=== PATIENT | female | born 1985 | race Caucasian/White ===

== ENCOUNTER 2019-09-13 22:11 | Emergency (ER) | payer SELFPAY ==
[2019-09-13] MEDS ORDERED: PROMETHAZINE HCL INJ 25 MG/1 ML VIAL IM ONE (23:19)
[2019-09-13] MEDS ORDERED: FAMOTIDINE INJ/PF 20 MG/2 ML SDV IV ONE (23:19)
[2019-09-13] MEDS ORDERED: NORMAL SALINE 1000 ML 1,000 ML IV ONE (23:19)
--- NOTE | 2019-09-13 23:21 | ER Document Report ---
ED Substance Abuse / Acc. OD - General TRAVEL OUTSIDE OF THE [place] IN LAST 30 DAYS: No - Related Data Home Medications: Protonix. Benadryl. Zofran <SANJAY OLIVEIRA - Last Filed: 09/14/19 05:34> <ELOALINA SUTTON - Last Filed: 09/14/19 10:00> - General Chief Complaint: ETOH Abuse Stated Complaint: ETOH ABUSE Time Seen by Provider: 09/13/19 23:13 Notes: Patient is a 34-year-old female that comes to the emergency department for chief complaint of wanting to detox from alcohol dependence. She states that she drinks alcohol daily, if she does not drink she gets tremors and feels awful. She states that she went to [facility] yesterday because she had episodes where she threw up some blood, she states she was discharged on Zofran and Protonix. She states that she can sip fluids but if she eats she has become intermittently nauseated and vomited. She has not vomited today. She denies fever/chills, chest pain, recreational drugs. She smokes. She has an IUD, has had an appendectomy, and has had a salpingectomy on one side. She denies any medical history otherwise. She denies any daily medications other than the ones from . She denies SI or HI. She has never gone through detox before. Patient states she does have a GI appointment for an endoscopy and colonoscopy already scheduled in about 3 weeks. (SANJAY OLIVEIRA) - Related Data Allergies/Adverse Reactions: metronidazole [From Flagyl] Allergy (Verified 09/13/19 22:19) Past Medical History - General Information source: Patient - Social History Smoking Status: Current Every Day Smoker Chew tobacco use (# tins/day): No Frequency of alcohol use: Heavy Drug Abuse: Marijuana Lives with: Spouse/Significant other Family History: Reviewed & Not Pertinent Patient has suicidal ideation: No Patient has homicidal ideation: No - Immunizations Immunizations up to date: Yes Hx Diphtheria, Pertussis, Tetanus Vaccination: Yes <SANJAY OLIVEIRA - Last Filed: 09/14/19 05:34> Review of Systems - Review of Systems Constitutional: No symptoms reported EENT: No symptoms reported Cardiovascular: No symptoms reported Respiratory: No symptoms reported Gastrointestinal: See HPI Genitourinary: No symptoms reported Female Genitourinary: No symptoms reported Musculoskeletal: No symptoms reported Skin: No symptoms reported Hematologic/Lymphatic: No symptoms reported Neurological/Psychological: See HPI <PEDROIRASANJAY - Last Filed: 09/14/19 05:34> Physical Exam <SANJAY OLIVEIRA - Last Filed: 09/14/19 05:34> - Vital signs Vitals: Temp Pulse Resp BP Pulse Ox 97.8 F 81 16 142/99 H 99 09/13/19 22:16 09/13/19 22:16 09/13/19 22:16 09/13/19 22:16 09/13/19 22:16 - Notes Notes: GENERAL: Occasional slurred speech, no signs of distress HEAD: Normocephalic, atraumatic. EYES: Pupils equal, round, and reactive to light. Extraocular movements intact. ENT: Oral mucosa moist, tongue midline. Oropharynx unremarkable. Airway patent. LUNGS: Clear to auscultation bilaterally, no wheezes, rales, or rhonchi. No respiratory distress. HEART: Regular rate and rhythm. No murmur ABDOMEN: Soft, non-tender. Non-distended. EXTREMITIES: Moves all 4 extremities spontaneously. No edema, normal radial and dorsalis pedis pulses bilaterally. No cyanosis. BACK: no cervical, thoracic, lumbar midline tenderness. No saddle anesthesia, normal distal neurovascular exam. Moves all extremities in full range of motion. NEUROLOGICAL: Alert and oriented x3. Slightly slurred speech. Cranial nerves II through XII grossly intact. PSYCH: Slightly tearful but cooperative SKIN: Flushed (SANJAY OLIVEIRA) Course - Laboratory Result Diagrams: 09/13/19 23:44 09/13/19 23:44 <PEDROIRASANJAY - Last Filed: 09/14/19 05:34> - Laboratory Result Diagrams: 09/13/19 23:44 09/13/19 23:44 <ALINA QUEEN - Last Filed: 09/14/19 10:00> - Re-evaluation Re-evalutation: Patient appears intoxicated but she is alert and conversational. She states she very much wants to enter detox although she has not done this before. Patient will need to be medically cleared and have an alcohol level of 200 or below to enter the detox program. CBC nonspecific, hemoglobin fortunately is normal, I do not suspect a significant bleed from the past 48 hours, patient has not been vomiting or having black or bloody bowel movements. Chemistry nonspecific. AST slightly elevated as expected. Platelets are slightly low. Talk screen is negative. Alcohol is very elevated at 431. Patient will need to be here for an extended period of time until this can be repeated and she can be cleared for detox. I discussed this with patient and significant other, they state satisfaction and agreement with plan. Patient will be discharged when her alcohol level is 200 or below. (SANJAY OLIVEIRA) 09/14/19 09:59 Accepted patient from [facility]. Patient's alcohol level 200 time to 1 hour ago from this time stamp. Patient has been given instructions to go directly to [facility]. At this time she is sitting in the bed comfortably talking with the nurse. She is stable for discharge. (ALINA QUEEN) - Vital Signs Vital signs: Temp Pulse Resp BP Pulse Ox 98.4 F 109 H 20 94/54 L 94 09/14/19 03:03 09/14/19 03:03 09/14/19 03:03 09/14/19 03:03 09/14/19 06:00 - Laboratory Laboratory results interpreted by me: 09/13/19 09/13/19 23:44 23:44 WBC 3.5 L MCV 108 H MCH 36.7 H RDW 14.8 H Plt Count 129 L Lymph % (Auto) 57.4 H Absolute Neuts (auto) 1.3 L Seg Neutrophils % 35.9 L Sodium 147.0 H Chloride 108 H BUN 4 L AST 270 H Salicylates < 1.0 L Acetaminophen < 10 L Serum Alcohol 431 H* - EKG Interpretation by Me Additional EKG results interpreted by me: EKG shows sinus rhythm at a rate of 82, QTC of 449, normal axis, no T wave inversions or ST segment changes in consecutive leads. (SANJAY OLIVEIRA) Discharge <SANJAY OLIVEIRA - Last Filed: 09/14/19 05:34> <ALINA QUEEN - Last Filed: 09/14/19 10:00> - Discharge Clinical Impression: Alcohol intoxication Qualifiers: Complication of substance-induced condition: with unspecified complication Qualified Code(s): F10.929 - Alcohol use, unspecified with intoxication, unspecified Alcohol dependence Qualifiers: Substance use status: unspecified alcohol-induced disorder Qualified Code(s): F10.29 - Alcohol dependence with unspecified alcohol-induced disorder Condition: Stable Disposition: PSYCH HOSP/UNIT Additional Instructions: Go directly to [facility] for alcohol detox. Return for any concerning symptoms including vomiting, vomiting blood, black stools, or any other concerning or worsening symptoms.
[2019-09-14 00:08] LABS: ABSOLUTE MONOCYTES (AUTO) 0.2 10^3/uL (0.1-1.4); ABSOLUTE NEUT (AUTO) 1.3 10^3/uL (1.7-8.2); BASOPHILS % (AUTO) 0.7 % (0-2); EOSINOPHILS % (AUTO) 0.8 % (0-6); HEMATOCRIT 42.6 % (36.0-47.0); HEMOGLOBIN 14.5 g/dL (12.0-15.5); LYMPHOCYTES % (AUTO) 57.4 % (13-45); MEAN CORPUSCULAR HEMOGLOBIN 36.7 pg (27.0-33.4); MEAN CORPUSCULAR VOLUME 108 fl (80-97); MONOCYTES % (AUTO) 5.2 % (3-13); PLATELET COUNT 129 10^3/uL (150-450); RED BLOOD COUNT 3.95 10^6/uL (3.72-5.28); RED CELL DISTRIBUTION WIDTH 14.8 % (11.5-14.0); SEGMENTED NEUTROPHILS % (AUTO) 35.9 % (42-78); TOTAL CELLS COUNTED % (AUTO) 100 %; WHITE BLOOD COUNT 3.5 10^3/uL (4.0-10.5)
[2019-09-14 00:16] LABS: ALBUMIN 4.6 g/dL (3.5-5.0); ALKALINE PHOSPHATASE 115 U/L (38-126); ANION GAP 11 (5-19); ASPARTATE AMINO TRANSFERASE 270 U/L (14-36); BILIRUBIN,DIRECT 0.2 mg/dL (0.0-0.4); BLOOD UREA NITROGEN 4 mg/dL (7-20); CARBON DIOXIDE 28 mmol/L (22-30); CHLORIDE 108 mmol/L (98-107); GLUCOSE 84 mg/dL (75-110); POTASSIUM 3.9 mmol/L (3.6-5.0); TOTAL PROTEIN 7.4 g/dL (6.3-8.2)
[2019-09-14 00:26] LABS: APPEARANCE,URINE CLEAR; BILIRUBIN,URINE NEGATIVE (NEGATIVE); COLOR,URINE STRAW; GLUCOSE, URINE NEGATIVE (NEGATIVE); KETONES,URINE NEGATIVE (NEGATIVE); LEUKOCYTE ESTERASE,URINE NEGATIVE (NEGATIVE); NITRITE,URINE NEGATIVE (NEGATIVE); PROTEIN,URINE NEGATIVE (NEGATIVE); URINE SPECIFIC GRAVITY 1.004; UROBILINOGEN,URINE NEGATIVE mg/dL (<2.0)
[2019-09-14 00:31] LABS: URINE AMPHETAMINES SCREEN NEGATIVE; URINE BARBITURATES SCREEN NEGATIVE; URINE BENZODIAZEPINES SCREEN NEGATIVE; URINE COCAINE SCREEN NEGATIVE; URINE MARIJUANA (THC) SCREEN NEGATIVE; URINE METHADONE SCREEN NEGATIVE; URINE PHENCYCLIDINE SCREEN NEGATIVE
[2019-09-14 01:27] LABS: ACETAMINOPHEN < 10 ug/mL (10-30); SALICYLATE < 1.0 mg/dL (2.0-20.0)
[2019-09-14 01:54] LABS: ALCOHOL 431 mg/dL (NONE DETECTED)
[2019-09-14 09:58] VITALS: BP 128/82
--- NOTE | 2019-09-14 12:06 | EKG REPORT ---
SEVERITY:- NORMAL ECG - SINUS RHYTHM : Confirmed by: Monica Murillo MD 14-Sep-2019 12:06:01
== END 2019-09-14 09:59 ==
LOC: ER 22:11
DX: F10.229 Alcohol dependence with intoxication, unspecified (principal); F17.200 Nicotine dependence, unspecified, uncomplicated
CPT/HCPCS: 93005; 99284; 96372; 96361; 96374; 36415; 80307 ×4; 84703; 85025; 80053; 81001; 93010; J2550; J7030; S0028

== ENCOUNTER 2020-04-23 23:52 | Emergency (ER) | payer MEDICAID, OTHER ==
[2020-04-24] MEDS ORDERED: ACETAMINOPHEN 325 MG TABLET PO ONE (00:44)
[2020-04-24] MEDS ORDERED: NORMAL SALINE 1000 ML 1,000 ML IV ONE ×2 (00:44→03:43)
[2020-04-24] MEDS ORDERED: ONDANSETRON HCL INJ/PF 4 MG/2 ML SDV IV ONE (01:10)
[2020-04-24 01:27] LABS: ABSOLUTE LYMPHOCYTES (AUTO) 1.4 10^3/uL (0.5-4.7); ABSOLUTE MONOCYTES (AUTO) 0.5 10^3/uL (0.1-1.4); ABSOLUTE NEUT (AUTO) 4.3 10^3/uL (1.7-8.2); BASOPHILS % (AUTO) 0.5 % (0-2); EOSINOPHILS % (AUTO) 0.5 % (0-6); HEMATOCRIT 43.8 % (36.0-47.0); HEMOGLOBIN 15.1 g/dL (12.0-15.5); MEAN CORPUSCULAR HEMOGLOBIN 33.6 pg (27.0-33.4); MEAN CORPUSCULAR HGB CONC 34.4 g/dL (32.0-36.0); MEAN CORPUSCULAR VOLUME 98 fl (80-97); MONOCYTES % (AUTO) 7.3 % (3-13); PLATELET COUNT 262 10^3/uL (150-450); RED BLOOD COUNT 4.49 10^6/uL (3.72-5.28); RED CELL DISTRIBUTION WIDTH 13.4 % (11.5-14.0); SEGMENTED NEUTROPHILS % (AUTO) 69.7 % (42-78); TOTAL CELLS COUNTED % (AUTO) 100 %; WHITE BLOOD COUNT 6.1 10^3/uL (4.0-10.5)
[2020-04-24 01:48] LABS: ALBUMIN 4.5 g/dL (3.5-5.0); ALKALINE PHOSPHATASE 56 U/L (38-126); ANION GAP 8 (5-19); ASPARTATE AMINO TRANSFERASE 25 U/L (14-36); BILIRUBIN,TOTAL 0.8 mg/dL (0.2-1.3); BLOOD UREA NITROGEN 8 mg/dL (7-20); CALCIUM 9.2 mg/dL (8.4-10.2); CARBON DIOXIDE 29 mmol/L (22-30); CHLORIDE 103 mmol/L (98-107); GLUCOSE 138 mg/dL (75-110); POTASSIUM 4.2 mmol/L (3.6-5.0); TOTAL PROTEIN 7.2 g/dL (6.3-8.2)
--- NOTE | 2020-04-24 01:58 | ER Document Report ---
ED Flu Like - General Chief Complaint: Flu Symptoms Stated Complaint: HEADACHE/NAUSEA/BODY ACHES Time Seen by Provider: 04/24/20 00:57 Notes: 34-year-old female with past medical history of acid reflux and depression presents with 2 days of fevers, headache, chills, cough, sore throat, nausea, vomiting and diarrhea. Patient states that she was tested for COVID this morning at her primary care. She states that her symptoms have gotten worse since her appointment. She has not been able to keep fluids or foods down. Has a Nexplanon. Her last menstrual period was 6 months ago. She states that at work her temperature was 101. Her last dose of Tylenol was approximately 5 hours ago. She has had nonbloody emesis and nonbloody diarrhea. No recent travel. She works at [employer]. TRAVEL OUTSIDE OF THE [place] IN LAST 30 DAYS: No - Related Data Allergies/Adverse Reactions: metronidazole [From Flagyl] Allergy (Verified 09/13/19 22:19) Past Medical History - Social History Smoking Status: Current Every Day Smoker Frequency of alcohol use: None Drug Abuse: None Family History: Reviewed & Not Pertinent Patient has homicidal ideation: No Past Surgical History: Reports: Hx Appendectomy, Hx Tubal Ligation - Immunizations Immunizations up to date: Yes Hx Diphtheria, Pertussis, Tetanus Vaccination: Yes Review of Systems - Review of Systems Constitutional: See HPI EENT: See HPI Cardiovascular: No symptoms reported Respiratory: See HPI Gastrointestinal: See HPI Female Genitourinary: No symptoms reported Musculoskeletal: See HPI Skin: No symptoms reported Hematologic/Lymphatic: No symptoms reported Neurological/Psychological: No symptoms reported Physical Exam - Vital signs Vitals: Temp Pulse Resp BP Pulse Ox 98.5 F 77 16 125/80 99 04/24/20 00:40 04/24/20 00:40 04/24/20 00:40 04/24/20 00:40 04/24/20 00:40 Interpretation: Normal - Notes Notes: Adult General: GENERAL: Alert, interacts well. No acute distress HEAD: Normocephalic, atraumatic EYES: Pupils equal, round and reactive to light. Extraocular movements intact. ENT: Oral mucosa moist, tongue midline. Oropharynx unremarkable. Airway patent. Nares patent, sinuses nontender, ear canals unremarkable, TMs intact. No Trismus. NECK: Full range of motion. Supple. Trachea midline. No lymphadenopathy. LUNGS: Clear to auscultation bilaterally, no wheezes, rales, or rhonchi. No respiratory distress. Nontender chest wall. HEART: Regular rate and rhythm. No murmurs, rubs or gallops. ABDOMEN: Soft, nontender. Nondistended. Bowel sounds present in all 4 quadrants. No rebound, guarding or masses. GENITOURINARY: Deferred EXTREMITIES: Moves all 4 extremities spontaneously. No edema, normal radial and dorsal pedis pulses bilaterally. No cyanosis. BACK: Moves all extremities with full range of motion. NEUROLOGICAL: Alert and oriented x3. Normal speech. Strength 5/ 5 in all extremities. PSYCH: Normal affect, normal mood. SKIN: Warm, dry, normal turgor. No rashes or lesions noted. Course - Re-evaluation Re-evalutation: 04/24/20 01:55 Patient's vital signs are within normal limits. Patient was given Zofran and Ty lenol shortly before my arrival to the room. Is currently receiving a bolus of normal saline. This was all ordered by a triage provider. 04/24/20 03:29 Chest x-ray shows no evidence of acute intrathoracic disease. Labs are unremarkable. 04/24/20 03:44 Patient was reevaluated. I informed her of her chest x-ray results and her lab results. She states that she is still nauseous. States she feels mildly better since receiving IV fluids given order another bag of IV fluids for an additional antinausea medication. She will also be food challenged. Once she is able to keep food and fluids down we will discharge the patient. Based on her presentation, her symptoms are likely viral at this time. 04/24/20 05:54 Patient was reevaluated. Patient denies any nausea at this time. States that she does feel better. She was able to keep fluids and some food down. I will go ahead and discharge the patient on Zofran. Recommend patient continue to take Tylenol as needed for symptoms and to keep herself hydrated as able. She may return to the emergency department for worsening symptoms or development of new symptoms. Also discussed I recommend she follow-up with her primary care provider soon as possible. Also discussed that as a person under investigation I recommend she follow the instructions and self isolate until she hears from the health department about the results of her test. Patient acknowledges and verbalizes understanding of instructions and plan. - Vital Signs Vital signs: Temp Pulse Resp BP Pulse Ox 98.6 F 75 14 101/77 98 04/24/20 03:42 04/24/20 03:42 04/24/20 03:42 04/24/20 03:42 04/24/20 03:42 - Laboratory Result Diagrams: 04/24/20 01:08 04/24/20 01:08 Laboratory results interpreted by me: 04/24/20 04/24/20 04/24/20 01:08 01:08 02:02 MCV 98 H MCH 33.6 H Glucose 138 H Urine Urobilinogen 2.0 H Discharge - Discharge Clinical Impression: Person under investigation for COVID-19, Chills Condition: Stable Disposition: HOME, SELF-CARE Instructions: COVID-19 Guidance for Persons Under Investigation, Acetaminophen Additional Instructions: Your imaging and lab work has been unremarkable. I recommend that you continue to take Tylenol to help alleviate your symptoms. Please push fluids as able. You are also a person under investigation for COVID. I recommend you follow the instructions provided in the discharge packet. You may return to the emergency department for worsening symptoms or development of new symptoms. I also recommend you follow-up with your primary care provider soon as possible. Forms: Return to Work
[2020-04-24 02:16] LABS: APPEARANCE,URINE CLEAR; BILIRUBIN,URINE NEGATIVE (NEGATIVE); COLOR,URINE YELLOW; GLUCOSE, URINE NEGATIVE (NEGATIVE); KETONES,URINE NEGATIVE (NEGATIVE); LEUKOCYTE ESTERASE,URINE NEGATIVE (NEGATIVE); NITRITE,URINE NEGATIVE (NEGATIVE); PROTEIN,URINE NEGATIVE (NEGATIVE); URINE SPECIFIC GRAVITY 1.019
[2020-04-24 02:55] LABS: A TYPE INFLUENZA AG NEGATIVE (NEGATIVE); B INFLUENZA AG NEGATIVE (NEGATIVE)
--- NOTE | 2020-04-24 03:10 | RADIOLOGY REPORT (SQ) ---
CLINICAL INDICATION: cough. TECHNIQUE: A single portable AP view was obtained of the chest at 0230 hours. COMPARISON: None. FINDINGS: The cardiomediastinal silhouette is normal. The lungs are grossly clear. No evidence of effusion or pneumothorax. The visualized bones are unremarkable. IMPRESSION: No evidence of active intrathoracic disease.
[2020-04-24] MEDS ORDERED: PROMETHAZINE HCL INJ 25 MG/1 ML VIAL IM ONE (03:43)
[2020-04-24] MEDS ORDERED: DIPHENHYDRAMINE HCL 25 MG CAPSULE PO ONE (03:44)
[2020-04-24] MEDS ORDERED: ONDANSETRON ODT 4 MG TAB (6 TAB/ER DISP) PO PRN (05:57)
[2020-04-24 06:23] VITALS: BP 128/83
== END 2020-04-24 06:12 | disposition home or self-care (01) ==
LOC: ER 23:52
DX: R50.9 Fever, unspecified (principal); R51 Headache; R11.0 Nausea; M79.10 Myalgia, unspecified site; R05 Cough; J02.9 Acute pharyngitis, unspecified; R11.2 Nausea with vomiting, unspecified; R19.7 Diarrhea, unspecified; Z79.899 Other long term (current) drug therapy; Z20.828 Contact with and (suspected) exposure to other viral communicable diseases; F17.200 Nicotine dependence, unspecified, uncomplicated
CPT/HCPCS: 99283; 96372; 96361; 96374; 36415; 85025; 80053; 81001; 87804; 71045; J3490 ×2; J2550; J2405; J7030